=== PATIENT | male | born 1995 | race Caucasian/White ===

== ENCOUNTER 2023-06-04 04:51 | Emergency (ER) | payer OTHER, BC, SELFPAY ==
[2023-06-04 04:57] VITALS: BP 172/96; PULSE 113; RESP 18; TEMP 36.4; O2SAT 98
[2023-06-04 05:04] LABS: Abs Immature Grans 0.08 10^3/uL (0.0-0.06); Absolute Basophil Count 0.06 10^3/uL (0.0-0.2); Absolute Eosinophil Count 0.03 10^3/uL (0.0-0.7); Absolute Lymphocyte Count 1.72 10^3/uL (1.2-3.4); Absolute Monocyte Count 0.58 10^3/uL (0.1-0.8); Absolute Neutrophil Count 12.87 10^3/uL (1.2-6.7); Basophils % 0.4; Eosinophils % 0.2; HCT 48.9 % (40.0-50.0); HGB 16.8 g/dL (13.5-17.5); Immature Grans % 0.5; Lymphocytes % 11.2; MCH 30.3 pg (27.0-33.0); MCHC 34.4 % (32.0-36.0); MCV 88 fL (80-95); MPV 8.4 fL (8.0-11.0); Monocytes % 3.8; Neutrophils % 83.9; Platelet Count 283 10^3/uL (130-400); RBC 5.55 10^6/uL (4.36-5.78); RDW 11.9 % (11.8-14.1); RDW-SD 38.9 fL; WBC 15.34 10^3/uL (4.4-10.8)
[2023-06-04 05:24] LABS: INR 1.1 (0.9-1.1)
[2023-06-04 05:27] LABS: ALT 65 U/L (16-63); AST 27 U/L (15-37); Albumin 3.8 g/dL (3.4-5.0); Alkaline Phosphatase 74 U/L (46-116); Amylase 45 U/L (25-115); Anion Gap 12.4 mmol/L (3-11); BUN 9 mg/dL (7-18); Bilirubin, Total 0.7 mg/dL (0.2-1.0); CO2 25.6 mmol/L (21.0-32.0); CREATININE 0.9 mg/dL (0.70-1.30); Calcium 8.8 mg/dL (8.5-10.1); Chloride 106 mmol/L (98-107); ETHANOL BLOOD 213.7 mg/dL (<10); Estimated GFR 120.05 (mL/min/1.73m2); Glucose 103 mg/dL (74-106); Lipase 89 U/L (16-77); Potassium 3.6 mmol/L (3.5-5.1); Sodium 144 mmol/L (136-145); Total Protein 7.6 g/dL (6.4-8.2); Troponin I < 50 ng/L (< or =60)
--- NOTE | 2023-06-04 05:30 | RT.EKG_ITS ---
APPROVED REPORT Exam: Resting ECG Reason for Exam: trauma Patient Location: E HR:113 bpm ECG Measurements Heart Rate 113 AXIS WA 138 P 47 QRSd 88 QRS 51 QT 323 T 26 QTc 445 Conclusion Sinus tachycardia...rate> [address] segment or T wave abnormalities to suggest occlusive [place]
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
[2023-06-04] MEDS: Normal Saline - Diluent 50 ML VIAL IJ (05:42)
[2023-06-04] MEDS: Omnipaque 350 MG/ML 100 ML BTL IJ (05:43)
[2023-06-04] MEDS: Normal Saline Flush 10 ML SYR IVP (05:43)
[2023-06-04 05:46] VITALS: BP 164/74; PULSE 121; RESP 16; O2SAT 96
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
[2023-06-04 06:02] LABS: Bilirubin Negative (Negative); Blood Trace-lysed (Negative); Clarity Clear (Clear); Glucose Negative (Negative); Ketones Negative (Negative); Leukocyte Esterase Negative (Negative); Nitrite Negative (Negative); Urobilinogen 0.2 mg/dL (Up to 0.2); pH 6.5 (5-8)
[2023-06-04 06:15] LABS: Bacteria Rare HPF (Negative); C & S Indicated? No; Casts Negative LPF (Negative); Crystals Negative HPF (Negative); Epithelial Cells Negative HPF (Negative); Mucus Negative (Negative); RBC 0-2 HPF (0-2); WBC Negative HPF (0-5)
[2023-06-04 06:19] LABS: *AMPHETAMINES SCREEN URINE Negative (Negative); *BARBITURATES SCREEN URINE Negative (Negative); *BENZODIAZEPINES SCREEN URINE Negative (Negative); Cannabinoids THC Positive (Negative); Cocaine Screen,Urine Negative (Negative); METHADONE URINE SCREEN Negative (Negative); OPIATES URINE SCREEN Negative (Negative)
[2023-06-04 06:20] LABS: Tricyclic Antidepressants Negative (Negative)
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
--- NOTE | 2023-06-04 08:02 | DI.VRAD_ITS ---
PROCEDURE INFORMATION: Exam: XR Left Hand Exam date and time: 06/04/2023 7:46 AM Age: 27 years old Clinical indication: Pain; Hand; Left TECHNIQUE: Imaging protocol: Radiologic exam of the left hand. Views: 3 or more views. COMPARISON: No relevant prior studies available. FINDINGS: Bones/joints: Normal. Soft tissues: Normal. IMPRESSION: No acute findings. Dictated and Authenticated by: Lonny Wright MD. Ordering:CHANG Dickinson MD
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
--- NOTE | 2023-06-05 10:30 | NUR.NOTE ---
Nursing Note: Patient looking for the results of his x rays
== END 2023-06-04 10:34 | disposition left against medical advice (07) ==
LOC: ER 13:42
PROVIDERS: Student in an Organized Health Care Education/Training Program; Emergency Provider Emergency Medicine
DX: S01.81XA Laceration without foreign body of other part of head, initial encounter (principal); S01.01XA Laceration without foreign body of scalp, initial encounter; S01.312A Laceration without foreign body of left ear, initial encounter; Y90.7 Blood alcohol level of 200-239 mg/100 ml; V48.5XXA Car driver injured in noncollision transport accident in traffic accident, initial encounter; Z53.29 Procedure and treatment not carried out because of patient's decision for other reasons
CPT/HCPCS: 00123; 12002; 12013; 36415; 74177; 80053; 80307; 82947; 83690; 84520; 86850; 86900; 86901; 93005; 99285; 70450; 70486; 71260; 72125; 73030; 73120; 80320; 81003; 81015; 82150; 82310; 82374; 82435; 82565; 83735; 84132; 84295; 84484; 85025; 85610; 85730; 93010; 99284; J2003; J3490